=== PATIENT | female | born 1990 ===

== ENCOUNTER 2025-01-04 15:04 | Outpatient (AMB) | payer OTHER, SELFPAY ==
[2025-01-04 15:22] VITALS: BP 129/87; PULSE 73; RESP 14; TEMP 36.4; O2SAT 98; BMI 26.2
--- NOTE | 2025-01-04 15:22 | AMB.GYNCLNOT ---
Vital Signs 01/04/25 15:22 Height 1.57 m Height Method Measured Weight 64.92 kg Weight Measurement Method Standing Scale BMI 26.2 BP 129/87 H Blood Pressure Source Automatic Cuff Blood Pressure Location Left Upper Arm Position Sitting Respiration 14 Pulse 73 Pulse Source Monitor Temp 97.6 F Temp Source Oral Pulse Oximetry (%) 98 Oxygen Delivery Method Room Air Allergies/Home Meds Allergies & Medications Allergies No Known Allergies Allergy (Verified 01/04/25 15:23) Medication Reconciliation ipratropium bromide 21 mcg (0.03 %) nasal spray 2 spray intranasal BID #30 mL 01/21/19 [Rx Confirmed 01/04/25] loratadine 10 mg tablet (Allergy Relief (loratadine)) 10 mg PO QDAY allergy symptoms #30 tabs 01/21/19 [Rx Confirmed 01/04/25] pseudoephedrine HCl 30 mg/5 mL oral liquid (Nasal Decongestant (pseudoephedrine)) 60 mg (10 mL) PO Q6H PRN sinus symptoms #118 mL 01/21/19 [Rx Confirmed 01/04/25] Intake Visit Data Collection New Patient or Established: New Patient not seen in past 3 years at [facility] (considered New) Reason for Visit:: WELLNESS CHECK Seen by Clinical Staff ONLY (RN/MA): No Interactive Media Marketing Director Required: No Do You Feel Safe at Home: Yes Authorities Contacted: N/A PCP or OBGYN visit in last 3 months: No Hx Now: No Are you currently on any form of Control: Yes Last menstrual period: 12/13/24 Pain Present Currently: No Pain Scale Used: Quan-Sanders/Numerical Pain scale:: 0 Smoking Status Smoking Status: Never smoker Host/Hostess Ground history Host/Hostess Ground History Menstrual regularity: regular Flow: normal Monthly: Yes How many days does period last: 4 Age at menarche: 12 Menopausal: No Currently sexually active: Yes Questionnaires Covid-19 Vaccine Questionnaire Has patient been vacinated for Covid-19 Have you been vacinated for Covid-19: Yes PHQ-9 PHQ-2 Over the last 2 weeks, how often have you been bothered by any of the following problems? 1. Little interest or pleasure in doing things: not at all 2. Feeling down, depressed, or hopeless: not at all Total score: 0 PHQ-9 3. Trouble falling or staying asleep, or sleeping too much: Not at all 4. Feeling tired or having little energy: Not at all 5. Poor appetite or overeating: Not at all 6. Feeling bad about yourself - or that you are a failure or have let yourself or your family down: Not at all 7. Trouble concentrating on things, such as reading the newspaper or watching television: Not at all 8. Moving or speaking so slowly that other people could have noticed? - Or the opposite - being so fidgety or restless that you have been moving around a lot more than usual: not at all 9. Thoughts that you would be better off or of hurting yourself in some way: Not at all Total score: 0 Source: Developed by Drs. Kadeem Jalloh, Kristy Aburto, Nando Casey and colleagues, with an educational juve from [employer]. Depression screen completed yes Social History Living Situation History Marital Status: Lives With: Family Housing: House Housing Other:: Teacher Tobacco History Smoking Status: Never smoker Second Hand Smoke Exposure: Yes Alcohol History Alcohol Intake: Current Alcohol Intake Frequency: holidays/special occasions only Last Drank: Unknown Substance Use History Substance Use: NO Domestic Abuse History Do You Feel Safe at Home: Yes Past Medical History Past Medical History Have you ever been diagnosed with any of the following: Neurological Problems Meningitis: No Seizures: No Epilepsy: No Guillain-[place] Syndrome: No Migraine: No Cardiology Problems Cardiac Arrhythmia: No Atrial Fibrillation: No Angina: No Heart Murmur: No Deep Vein Thrombosis: No Hypertension: No Varicose Veins: No Respiratory Problems Asthma: No Pneumonia: No Pulmonary Embolism: No Stomache/Intestinal Problems Gall Bladder Disease: No Diverticulitis: No Gastroesophageal Reflux Disease: No Obesity: No Genital/Urinary Problems Renal Disease: No Kidney Stones: No Reproductive Problems Breast Cancer: No Endometriosis: No Fibroids: No Genital Herpes: No Gonorrhea: No Pelvic Inflammatory Disease: No Polycystic Ovarian Syndrome: No Previous Pregnancies: Yes ( x 1 in the past, x 1 in the past) Syphilis: No Musculoskeletal Problems Arthritis: No Rheumatoid Arthritis: No Fibromyalgia: No Endocrine Problems Diabetes Mellitus Type 2: No Hypoglycemia: No Hyperthyroidism: No Hypothyroidism: No Thyroid Cancer: No Systemic Lupus Erythematosus: No Blood Problems Anemia: No Psychologic Problems Recreational Drug Use: No Depression: No Anxiety: No Attention Deficit Disorder: No Other Problems Hospitalization: Yes (For vaginal delivery and ) Autoimmune Disease: No Cosmetic Surgery: Yes (Abdominoplasty) Blood Transfusions: No Blood Transfusion Reaction: No Anesthesia Reactions: No Surgical History Appendectomy: No Bariatric Surgery: No Breast Surgery: No Additional Surgical History: x 1, abdominoplasty History of Present Illness HPI Narrative The patient is a 34-year-old -0-0-2 status post vaginal delivery x 1 in 2014. The baby weighed 8 pounds followed by x 1 in 2019 baby weighed 10 pounds 3 ounces I delivered both of her daughters. Her first daughter's name is Estela her second 1 is Anamaria. Patient has been exercising and trying to get into shape she is had an abdominoplasty in the past this was performed about 2 years ago. She is wondering about a possible tubal ligation. She is asking whether this would be a good idea or whether her should pursue vasectomy. She reports her cycles are monthly lasting 3 to 4 days she also states that she has been taking some type of supplements containing creatinine and.She is reporting increased facial hair especially around her chin and upper lip and that she has hair around her nipples. She would like testing for this. She declines control pills and is using condoms for contraception. Review of Systems Review of Systems Narrative Review of Systems: Patient denies dyspareunia pelvic pain or abnormal bleeding she reports her cycles are monthly and regular. She denies any urinary complaints. No nipple discharge or breast pain. She does report increased hair growth on her face and around her nipples. Systems Reviewed: All systems reviewed, normal except as documented Exam General Limitations: no limitations General Appearance: alert, comfortable, cooperative, healthy appearing and well groomed Neck Neck exam: Present normal inspection, full ROM and trachea midline Chest Chest inspection: Present normal inspection and symmetric chest wall rise Resp Respiratory exam: Present normal lung sounds bilaterally Card Cardiovascular exam: Present regular rate, normal rhythm and normal heart sounds Abdominal Abdominal exam: Present soft, normal bowel sounds and scar (Scar from abdominoplasty and scar around her umbilicus from abdominoplasty) External exam: Present normal external exam Speculum exam: Present normal speculum exam Bimanual exam: Present normal bimanual exam Extremities Extremities exam: Present normal inspection and full ROM Psych Psychiatric exam: Present normal affect and normal mood Skin Skin exam: Present warm, dry, intact and normal color Assessment & Plan Diagnosis / Problem List (1) Annual wellness visit: Status: Acute Plan: Pap with high risk HPV was performed breast exam encouraged. Patient declines mammogram until age 38. (2) Female hirsutism: Status: Acute Plan: Check labs for hersutism including free testosterone LH FSH hemoglobin A1c. We will call the patient back with results. (3) Contraceptive education: Status: Acute Plan: Discouraged laparoscopic bilateral salpingectomy secondary to the patient's very tight skin after her abdominoplasty and potential scarring from her abdominoplasty and section. I recommended condoms, offered control pills but patient declined.Recommended Nexplanon and offered Mirena IUD patient declined both. Recommended vasectomy for her . Additional Plan Follow Up: 1 Year Office Procedures OB Clinic LOC & Office Proc's Nursing/Assessment Patient Status: Established Patient OB Clinic Nursing Assessment: Medication Reconciliation, Update PMH in EMR and Vital Signs OB Clinic Coordination of Care: Complex Care and Chronic Disease 1-5, Consent,records obtained, informed consent, Education Simp Pt/Fam, Lab and Imaging orders and Staff clarify orders Miscellaneous Interventions: Pelvic/Pap Smear Set up Established Patient Charge Established Patient Point Assignment: 120 Established Patient Point Charge: EP Level 4 (120-155) SUSPECT ARTIST SUPERVISOR: Papsmear Pap Smear Procedure Chaparone in room during procedure?: No Pre-op diagnosis general: Annual Well-woman exam Post-op diagnosis procedure note: Same Procedure Notes:: Pap with High risk HPV done Papsmear completed: yes
== END 2025-01-04 15:59 | disposition home or self-care (01) ==
LOC: HODSOBC 15:04
PROVIDERS: PCP Physician Assistant; Supervising Provider Obstetrics & Gynecology; Visit Provider Obstetrics & Gynecology
DX: Z01.419 Encounter for gynecological examination (general) (routine) without abnormal findings (principal); L68.0 Hirsutism
CPT/HCPCS: 99214; G0463

== ENCOUNTER → 2025-01-14 | Outpatient (CLI) | payer BC, SELFPAY ==
[2025-01-14 17:11] LABS: Basophils % (Auto) 1 % (0-2.5); Eosinophils # (Auto) 0.1 Thou/mm3 (0.0-0.5); Eosinophils % (Auto) 2 % (0-10); Hematocrit 38.4 % (36.0-46.0); Hemoglobin 12.7 g/dL (12.0-16.0); Immature Granulocytes % (Auto) 0 % (0-0); Immature Granulocytes Auto 0.01 Thou/mm3 (0.00-0.00); Lymphocytes # (Auto) 2.7 Thou/mm3 (1.0-4.8); Lymphocytes % (Auto) 48 % (10-50); Mean Corpuscular HGB Conc 33.1 g/dl (31.0-37.0); Mean Corpuscular Hemoglobin 28.7 pg (25.0-35.0); Mean Corpuscular Volume 87 fL (80-100); Monocytes # (Auto) 0.3 Thou/mm3 (0.0-0.8); Monocytes % (Auto) 5 % (0-12); Neutrophils # (Auto) 2.5 Thou/mm3 (1.8-7.7); Neutrophils % (Auto) 44 % (37-80); Nucleated Red Blood Cell % 0 /100 WBC (0); Platelet Count 252 Thou/mm3 (140-440); RDW Standard Deviation 41.8 fL (36.4-46.3); Red Blood Count 4.42 Miln/mm3 (4.00-5.20); White Blood Count 5.7 Thou/mm3 (3.6-11.0)
[2025-01-14 17:18] LABS: Glucose Estimated Average 105 mg/dL (80-131); Hemoglobin A1C 5.3 % Hgb (4.8-6.0)
[2025-01-14 17:31] LABS: Alanine Aminotransferase 17 U/L (10-49); Albumin, Serum 4.8 gm/dL (3.5-5.0); Alkaline Phosphatase 96 U/L (46-116); Anion Gap 10 (7-16); Aspartate Amino Transferase 13 U/L (0-34); BUN/Creatinine Ratio 26 Ratio (12-20); Bilirubin,Total 0.4 mg/dL (0.3-1.2); Blood Urea Nitrogen 18 mg/dL (9-23); Calcium 9.8 mg/dL (8.3-10.6); Calcium (Corrected) 9.8 mg/dL (8.5-10.1); Chloride 107 mMol/L (98-107); Creatinine (Component) 0.7 mg/dL (0.6-1.3); Globulin 2.4 gm/dL (2.3-3.5); Glucose 87 mg/dL (74-106); Osmolality,Calculated 284 (275-295); Potassium 4.1 mMol/L (3.4-5.1); Sodium 142 mMol/L (136-145); Total Protein 7.2 gm/dL (5.7-8.2); eGFR > 60 See Note
[2025-01-14 17:32] LABS: Follicle Stimulating Hormone 7.75 mIU/mL (See Note)
[2025-01-21 06:56] LABS: Luteinizing Hormone* 3.1 mIU/mL; Testosterone,Total* 12 ng/dL (2-45)
== END | disposition home or self-care (01) ==
LOC: COPL 15:42
PROVIDERS: PCP Obstetrics & Gynecology; Referring Provider Obstetrics & Gynecology; Visit Provider Obstetrics & Gynecology
DX: L68.0 Hirsutism (principal)
CPT/HCPCS: 36415; 80053; 83001; 83002; 83036; 84403; 84443; 85025

== ENCOUNTER → 2025-02-11 | Outpatient (CLI) | payer BC, SELFPAY ==
--- NOTE | 2025-02-11 15:30 | XR_ITS ---
Examination: Transvaginal ultrasound of the pelvis, complete Technique: Transvaginal sonographic images pelvis performed using sharma scale imaging Exam date and time: February 11, 2025 1557 hours INDICATIONS: Hirsutism 2 years FINDINGS: Uterus 7.4 cm endometrial stripe 0.6 cm Benign cervical cyst No uterine mass Right ovary 3.2 cm arterial flow small follicles Left ovary 3.1 cm arterial flow small follicles IMPRESSION: Negative examination.
== END | disposition home or self-care (01) ==
PROVIDERS: PCP Obstetrics & Gynecology; Referring Provider Obstetrics & Gynecology; Visit Provider Obstetrics & Gynecology
DX: L68.0 Hirsutism (principal)
CPT/HCPCS: 76830

== ENCOUNTER 2025-03-01 11:43 | Outpatient (AMB) | payer BC, SELFPAY ==
--- NOTE | 2025-03-01 11:30 | GYNCLNT_ITS ---
Allergies/Home Meds Allergies & Medications Allergies No Known Allergies Allergy (Verified 03/01/25 11:31) Intake Visit Data Collection New Patient or Established: Established Patient (seen at [facility] within 3 years) Reason for Visit:: LAB AND ULTRASOUND RESULTS Consent obtained for Telemed Visit: Yes Seen by Clinical Staff ONLY (RN/MA): No Groundhand Required: No Do You Feel Safe at Home: Yes Authorities Contacted: N/A PCP or OBGYN visit in last 3 months: Yes Hx Now: No Are you currently on any form of Control: No Last menstrual period: 02/06/25 Pain Present Currently: No Pain Scale Used: Quan-Sanders/Numerical Pain scale:: 0 Smoking Status Smoking Status: Never smoker For Telemed visit only Telemed Video/Phone Visit: Yes Verbal consent obtained for Telemed visit?: Yes Verbal Consent witness name: RUTH SANCHEZ Telemed Video/Phone visit w/Clinical Staff: 5-10 min Green Chain Off Bearer history Green Chain Off Bearer History Menstrual regularity: regular Flow: normal Monthly: Yes How many days does period last: 5 Age at menarche: 10 Currently sexually active: Yes Questionnaires Covid-19 Vaccine Questionnaire Has patient been vacinated for Covid-19 Have you been vacinated for Covid-19: Yes PHQ-9 PHQ-2 Over the last 2 weeks, how often have you been bothered by any of the following problems? 1. Little interest or pleasure in doing things: not at all 2. Feeling down, depressed, or hopeless: not at all Total score: 0 PHQ-9 3. Trouble falling or staying asleep, or sleeping too much: Not at all 4. Feeling tired or having little energy: Not at all 5. Poor appetite or overeating: Not at all 6. Feeling bad about yourself - or that you are a failure or have let yourself or your family down: Not at all 7. Trouble concentrating on things, such as reading the newspaper or watching television: Not at all 8. Moving or speaking so slowly that other people could have noticed? - Or the opposite - being so fidgety or restless that you have been moving around a lot more than usual: not at all 9. Thoughts that you would be better off or of hurting yourself in some way: Not at all Total score: 0 Source: Developed by Drs. Kadeem L. ShubhamKristy gunderson, Nando Casey and colleagues, with an educational juve from [employer]. Depression screen completed yes Social History Living Situation History Lives With: Family Housing: House Housing Other:: Teacher Tobacco History Smoking Status: Never smoker Second Hand Smoke Exposure: Yes Alcohol History Alcohol Intake: Current Alcohol Intake Frequency: holidays/special occasions only Substance Use History Substance Use: NO Domestic Abuse History Do You Feel Safe at Home: Yes Past Medical History Past Medical History Have you ever been diagnosed with any of the following: Neurological Problems Cerebrovascular Accident (CVA): No Transient Ischemic Attacks (TIA): No Alzheimer's Disease: No Meningitis: No Seizures: No Epilepsy: No Multiple Sclerosis: No Cerebral Palsy: No Guillain-[place] Syndrome: No Migraine: No Cardiology Problems Myocardial Infarction: No Cardiac Arrhythmia: No Atrial Fibrillation: No Angina: No Heart Murmur: No Congestive Heart Failure: No Deep Vein Thrombosis: No Hypertension: No Varicose Veins: No Respiratory Problems Chronic Obstructive Pulmonary Disease (COPD): No Asthma: No Bronchitis: No Emphysema: No Pneumonia: No Pulmonary Fibrosis: No Tuberculosis: No Pulmonary Embolism: No Stomache/Intestinal Problems Liver Cancer: No Hepatitis: No Cirrhosis: No Pancreatic Cancer: No Pancreatitis: No Gall Bladder Disease: No Diverticulitis: No Gastroesophageal Reflux Disease: No Obesity: No Genital/Urinary Problems Renal Disease: No Kidney Stones: No Reproductive Problems Breast Cancer: No Endometriosis: No Fibroids: No Genital Herpes: No Gonorrhea: No Pelvic Inflammatory Disease: No Polycystic Ovarian Syndrome: No Previous Pregnancies: Yes ( x 1 in the past, x 1 in the past) Syphilis: No Musculoskeletal Problems Arthritis: No Rheumatoid Arthritis: No Fibromyalgia: No Endocrine Problems Diabetes Mellitus Type 1: No Diabetes Mellitus Type 2: No Hypoglycemia: No [place]'s Syndrome: No [place]'s Disease: No Hyperthyroidism: No Hypothyroidism: No Thyroid Cancer: No Systemic Lupus Erythematosus: No Blood Problems Anemia: No Leukemia: No Hemophilia: No Psychologic Problems Schizophrenia: No Recreational Drug Use: No Bipolar Disorder: No Depression: No Anxiety: No Behavior Problems: No Self-Mutilation: No Attention Deficit Disorder: No Other Problems Hospitalization: Yes (For vaginal delivery and ) Down Syndrome: No Autism: No Developmental Delay: No Cosmetic Surgery: Yes (Abdominoplasty) Shingles: No Falls: No Blood Transfusions: No Blood Transfusion Reaction: No Anesthesia Reactions: No Surgical History Appendectomy: No Bariatric Surgery: No Breast Surgery: No History of Present Illness HPI Narrative The patient is a 34-year-old -0-0-2 who requested a TeleMed conference to review her results. She was seen 01/04/2025 for an annual exam and stated she was noticing more hair growth around her nipples and her chin and she requested lab work. We also performed an ultrasound. Patient has had a history of C- section and an abdominoplasty. She is on supplements containing creatinine. An ultrasound was reviewed revealing a normal stripe of 0.6 cm and unremarkable ultrasound hemoglobin was 12.7 hematocrit 38.4. She did not have a significant white count and her platelets were 252. Hemoglobin A1c 5.3 TSH 1.5 which are both normal FSH normal 7.75 LH 3.1 total testosterone 12. All lab work normal Results Objective Laboratory: All lab work was reviewed with the patient today and is normal Imaging: Pelvic ultrasound was reviewed with the patient today and is normal Assessment & Plan Diagnosis / Problem List (1) Contraceptive education: Status: Acute Assessment and Plan: During her annual I discussed the fact that patient would be a difficult laparoscopic salpingectomy secondary to and abdominoplasty. She is in the process of pursuing a vasectomy for her . They are using condoms. She declines control pills IUD and Nexplanon at this time. (2) Female hirsutism: Status: Acute Assessment and Plan: Total testosterone and LH FSH is normal. Liver Function tests, BUN/creatinine are all normal. Recommend decreasing or stopping weightlifting supplements. She can follow-up with her primary care. Office Procedures OB Clinic LOC & Office Proc's Nursing/Assessment Patient Status: Established Patient OB Clinic Nursing Assessment: Medication Reconciliation, Update PMH in EMR and Vital Signs OB Clinic Coordination of Care: Complex Care and Chronic Disease 1-5, Consent,records obtained, informed consent, Education Simp Pt/Fam, Results/Orders obtained and Staff clarify orders Established Patient Charge Established Patient Point Assignment: 90 Telehealth If patient is seen using Teleconference methods, complete New/Est section, but DO NOT will points only will the correct Telemed visit type Telemed Phone/Video with patient at home & Dr,PA,PROOF MACHINE OPERATOR SUPERVISOR: Yes
== END 2025-03-01 12:04 | disposition home or self-care (01) ==
LOC: HODSOBC 11:43
PROVIDERS: Supervising Provider Obstetrics & Gynecology; Visit Provider Obstetrics & Gynecology
DX: L68.0 Hirsutism (principal); Z30.09 Encounter for other general counseling and advice on contraception
CPT/HCPCS: 99212; G0463